=== PATIENT | male | born 1980 | race Caucasian/White ===

== ENCOUNTER 2021-04-03 02:50 | Emergency (ER) | payer OTHER ==
[~2021-04-03] VITALS: Ht 182.9 cm; Wt 81.6 kg
[2021-04-03 02:57] VITALS: BP 134/73
--- NOTE | 2021-04-03 04:03 | NUR ---
called [facility] for x ray read
[2021-04-03] MEDS ORDERED: IBUPROFEN 600 MG TABLET ONE (04:22)
[2021-04-03] MEDS ORDERED: IBUPROFEN 600 MG TABLET PO ONE (04:30)
== END 2021-04-03 04:59 ==
LOC: ER 02:50
DX: S62.336A Displaced fracture of neck of fifth metacarpal bone, right hand, initial encounter for closed fracture (principal); F10.10 Alcohol abuse, uncomplicated; F17.200 Nicotine dependence, unspecified, uncomplicated; Y90.9 Presence of alcohol in blood, level not specified; Z02.89 Encounter for other administrative examinations; X58.XXXA Exposure to other specified factors, initial encounter; Y93.89 Activity, other specified; Y92.89 Other specified places as the place of occurrence of the external cause; Y99.8 Other external cause status
CPT/HCPCS: 73130-TC